=== PATIENT | female | born 1985 | race Hispanic/Latino ===

== ENCOUNTER 2018-05-13 13:14 | Emergency (ER) | payer OTHER ==
[2018-05-13 13:28] VITALS: RESP 18
[2018-05-13] MEDS ORDERED: Sodium Chloride 0.9% 1,000 ML IV STA (14:14)
[2018-05-13 14:35] LABS: BASO # 0.04 K/mm3 (0.0-2.0); BASO % 0.4 % (0.0-3.0); EOS # 0.1 (0.0-0.7); EOS % 1.1 % (1.5-5.0); GRAN # 6.2 (1.4-6.5); GRAN % 68.7 % (50.0-68.0); HEMOGLOBIN 13.8 g/dL (12.0-16.0); LYMPH # 2.4 (1.2-3.4); LYMPH % 26.1 % (22.0-35.0); MEAN CELL VOLUME 94.7 fl (80.0-105.0); MEAN CORPUSCULAR HEMOGLOBIN 31.8 pg (25.0-35.0); MEAN CORPUSCULAR HGB CONC 33.6 g/dl (31.0-37.0); MEAN PLATELET VOLUME 9.9 fl (7.0-11.0); MONO # 0.3 (0.1-0.6); MONO % 3.7 % (1.0-6.0); RBC 4.34 10^6/uL (3.5-6.1); RED CELL DISTRIBUTION WIDTH 12.5 % (11.5-14.5)
--- NOTE | 2018-05-13 15:18 | ED PDOC ---
Arrival/HPI - General Chief Complaint: GI Problem Time Seen by Provider: 05/13/18 13:28 Historian: Patient - History of Present Illness Narrative History of Present Illness (Text): 05/13/18 15:12 A 32 year old female, whose past medical history includes c. diff 4 years ago, presents to the emergency department complaining of diarrhea since 2 weeks ago. Patient reports having 4-6 diarrhea episodes daily and is concerned she may have c. diff again. Patient notes she started antibiotics a week and a half ago, she also notes she had diarrhea prior to taking antibiotics. Patient denies any pain during urination, change in appetite, fever, chills, shortness of breath, chest pain, nausea, vomiting, or any other complaints. PMD: [place] Crowder Time/Duration: Other (2 weeks) Symptom Onset: Gradual Quality: Other (NO pain ) Activities at Onset: Light Context: Home Past Medical History - Provider Review Nursing Documentation Reviewed: Yes - Travel History Have you recently traveled outside [place] w/in the past 3 mons?: No - Tetanus Immunization Tetanus Immunization: Unknown - Cardiac Hx Cardiac Disorders: No - Pulmonary Hx Asthma: Yes - Gastrointestinal Hx Gastroesophageal Reflux: Yes - Psychiatric Hx Psychophysiologic Disorder: No Hx Substance Use: No - Surgical History Hx Section: Yes Hx Tonsillectomy: Yes Family/Social History - Physician Review Nursing Documentation Reviewed: Yes Family/Social History: No Known Family HX Smoking Status: Never Smoked Hx Alcohol Use: Yes Frequency of alcohol use: Socially Hx Substance Use: No Allergies/Home Meds Allergies/Adverse Reactions: Allergies No Known Allergies Allergy (Verified 05/13/18 13:29) Home Medications: Home Meds Medication Instructions Recorded Confirmed Omeprazole 40 mg PO DAILY 05/13/18 05/13/18 Review of Systems - Physician Review All systems were reviewed & negative as marked: Yes - Review of Systems Constitutional: absent: Fatigue, Fevers, Night Sweats Respiratory: absent: SOB, Cough Cardiovascular: absent: Chest Pain, Palpitations Gastrointestinal: Diarrhea, Nausea (occasional nausea/ none currently). absent: Abdominal Pain, Constipation, Vomiting, Appetite Changes Genitourinary Female: absent: Dysuria, Frequency, Hematuria, Other Musculoskeletal: absent: Arthralgias, Back Pain Skin: absent: Rash, Pruritis Neurological: absent: Headache, Dizziness Physical Exam Vital Signs Reviewed: Yes Vital Signs Temp Pulse Resp BP Pulse Ox 12/15/18 13:25 98.6 F 90 18 123/85 97 Temperature: Afebrile Blood Pressure: Normal Pulse: Regular Respiratory Rate: Normal Appearance: Positive for: Well-Appearing, Non-Toxic Pain Distress: None Mental Status: Positive for: Alert and Oriented X 3 - Systems Exam Head: Present: Atraumatic, Normocephalic Conjunctiva: Present: Normal Mouth: Present: Moist Mucous Membranes Neck: Present: Normal Range of Motion Respiratory/Chest: Present: Clear to Auscultation, Good Air Exchange. No: Respiratory Distress, Accessory Muscle Use Cardiovascular: Present: Regular Rate and Rhythm, Normal S1, S2. No: Murmurs Abdomen: No: Tenderness, Distention, Peritoneal Signs, Rebound, Guarding Upper Extremity: Present: Normal Inspection. No: Cyanosis, Edema Lower Extremity: Present: Normal Inspection. No: Edema Neurological: Present: GCS=15, Speech Normal Skin: Present: Warm, Dry, Normal Color. No: Rashes Psychiatric: Present: Alert, Oriented x 3 Medical Decision Making ED Course and Treatment: 05/13/18 15:20 32 year old female presents to the emergency department with diarrhea x 2 weeks. Plan: -- Labs -- IV fluids -- Stool Culture -- Cdiff toxin and antigen -- Urine test -- Urinalysis -- Reassess and disposition Progress Notes: cbc; wnl cmp; wnl pt is non toxic well appearing; no distress. pt states she is unable to given stool sample in er. pt is refusing CT of abdomen and pelvis, states she doesnt have any pain. abdomen remains non tender; pt denies any abdominal pain. discussed results with patient in depth; advised f/u with GI specialist within the next 2 days. advised BRAT diet; advised immediate return if symptoms worsen,persist or if new symptoms develop. Patient verbalizes understanding of discharge instructions and need for immediate followup. all aspects of this case were discussed the attending of record. impression; diarrhea Increase fluids BRAT Diet: Bananas, Rice, Apples, [place] Follow up with GI specialist within the next 2 days. Follow up with the primary care physician within the next 2 days. Return immediately if symptoms worsen, persist or if new symptoms develop: high fevers, abdominal pain, vomiting, dizziness or weakness or if any other concerning symptoms develop. - Lab Interpretations Lab Results: 05/13/18 14:20 Lab Results 05/13/18 14:20: WBC 9.0, RBC 4.34, Hgb 13.8, Hct 41.1, MCV 94.7, MCH 31.8, MCHC 33.6, RDW 12.5, Plt Count 284, MPV 9.9, Gran % 68.7 H, Lymph % (Auto) 26.1, Mccone % (Auto) 3.7, Eos % (Auto) 1.1 L, Baso % (Auto) 0.4, Gran # 6.20, Lymph # (Auto) 2.4, Mccone # (Auto) 0.3, Eos # (Auto) 0.1, Baso # (Auto) 0.04 - Medication Orders Current Medication Orders: Sodium Chloride (Sodium Chloride 0.9%) 1,000 mls @ 999 mls/hr IV .Q1H1M STA Stop: 05/13/18 15:14 Last Admin: 05/13/18 14:58 Dose: 999 mls/hr eMAR Start Stop Document 05/13/18 14:58 SRE (Rec: 05/13/18 14:58 SRE [id number]) Intravenous Solution Start Date 05/13/18 Start Time 14:20 End Date 05/13/18 End time 15:20 Total Infusion Time 60 - Scribe Statement The provider has reviewed the documentation as recorded by the Pita Hong All medical record entries made by the Acibmichaela were at my direction and personally dictated by me. I have reviewed the chart and agree that the record accurately reflects my personal performance of the history, physical exam, medical decision making, and the department course for this patient. I have also personally directed, reviewed, and agree with the discharge instructions and disposition. Disposition/Present on Arrival - Present on Arrival Any Indicators Present on Arrival: No History of DVT/PE: No History of Uncontrolled Diabetes: No Urinary Catheter: No History of Decub. Ulcer: No History Surgical Site Infection Following: None - Disposition Have Diagnosis and Disposition been Completed?: Yes Diagnosis: Diarrhea Disposition: HOME/ ROUTINE Disposition Time: 16:40 Patient Plan: Discharge Patient Problems: Current Active Problems Problem Status Onset Diarrhea Acute Condition: GOOD Discharge Instructions (ExitCare): Diarrhea in Adolescents and Adults Additional Instructions: Increase fluids BRAT Diet: Bananas, Rice, Apples, [place] Follow up with GI specialist within the next 2 days. Follow up with the primary care physician within the next 2 days. Return immediately if symptoms worsen, persist or if new symptoms develop: high fevers, abdominal pain, vomiting, dizziness or weakness or if any other concerning symptoms develop. Referrals: Flavio Bales MD [Staff Provider] - Follow up with primary Chandrika Vidal MD [Medical Doctor] - Follow up with primary Director Supply Chain Service [Outside] - Follow up with primary Forms: [employer] (Danish), WORK NOTE
[2018-05-13 15:38] LABS: PH,URINE 6.5 (4.7-8.0); URINE APPEARANCE SLIGHT-CLOUDY (CLEAR); URINE BILIRUBIN NEGATIVE (NEGATIVE); URINE BLOOD TRACE-INTACT (NEGATIVE); URINE COLOR LIGHT YELLOW (YELLOW); URINE GLUCOSE (UA) NEGATIVE (NEGATIVE); URINE LEUKOCYTE ESTERASE LARGE Leu/uL (NEGATIVE); URINE PROTEIN NEGATIVE mg/dL (<30 mg/dL); URINE UROBILINOGEN 0.2 E.U./dL (<1 E.U./dL)
[2018-05-13 15:39] LABS: HCG,QUALITATIVE URINE NEGATIVE (NEGATIVE)
[2018-05-13 15:45] LABS: BLOOD UREA NITROGEN 11 mg/dL (7-21); GFR NON-AFRICAN AMERICAN > 60
[2018-05-13 15:46] LABS: ALB/GLOB RATIO 1.6 (1.1-1.8); ALBUMIN 4.6 g/dL (3.0-4.8); CALCIUM 9.6 mg/dL (8.4-10.5)
[2018-05-13 15:47] LABS: ALT/SGPT 28 U/L (7-56); AST/SGOT 25 U/L (14-36); LIPASE 124 U/L (23-300)
[2018-05-13 15:48] LABS: URINE BACTERIA TRACE (NEG); URINE EPITHELIAL CELLS 0 - 2 /hpf (0-5); URINE RBC 0 - 2 /hpf (0-2)
[2018-05-13 16:36] VITALS: BP 126/72; PULSE 89; TEMP 98; O2SAT 98
== END 2018-05-13 17:15 | disposition home or self-care (01) ==
LOC: ED 13:14
DX: R19.7 Diarrhea, unspecified (principal)
CPT/HCPCS: 80053; 81001; 83690; 84703; 85025; 87086; 96360; 99284; J7030